=== PATIENT | female | born 1950 | race Caucasian/White ===

== ENCOUNTER 2017-12-14 10:45 | Outpatient (CLI) | payer OTHER | END 2017-12-14 10:52 | disposition home or self-care (01) | LOC: SONOGRAMA 10:45 | DX: E04.1 Nontoxic single thyroid nodule (principal); C07 Malignant neoplasm of parotid gland ==

== ENCOUNTER 2025-04-12 10:47 | Outpatient (CLI) | payer OTHER | END 2025-04-12 10:49 | disposition home or self-care (01) | LOC: SONOGRAMA 10:47 | PROVIDERS: ATTEND Pathology Anatomic Pathology & Clinical Pathology | DX: D44.0 Neoplasm of uncertain behavior of thyroid gland (principal); E04.1 Nontoxic single thyroid nodule ==